=== PATIENT | female | born 1990 | race Caucasian/White ===

== ENCOUNTER 2016-09-01 19:43 | Emergency (ER) | payer OTHER ==
--- NOTE | 2016-09-03 14:26 | ER ---
ADMIT: 09/01/2016 RM/LOC: ER [facility] MR#: [id number] [address] [id number] KAEL BENITES Jenifer [facility] [address] Emergency Room Report SEX: F AGE: 25 : 1990 DATE: 09/01/2016 ADDENDUM: CHIEF COMPLAINT: Bleeding. HISTORY OF PRESENT ILLNESS: This is a 25-year-old female, who is about 8 weeks . She started having some cramping and bleeding on Wednesday, just progressively worsened, she passed a big clot this evening, as she was concerned, so came to ER. Ultrasound was done, it did show a sac, but there is no heart rate. She does have O positive blood. Her CBC is normal. Quant is pending at this time. I am going to discharge her home, have her return to the ER if she is bleeding through 2 pads in 2 consecutive hours. Otherwise, she does have an appointment in 2 days with her OB. I told her to keep that appointment for followup. CLINICAL IMPRESSION: Threatened . NERIS Rothman / Nilo Dunlap MD / aleksandr JOB #: [id number] CC: Nilo Dunlap MD, Attending Physician Elizabeth Devine MD, Family Physician
== END 2016-09-01 21:45 | disposition home or self-care (01) ==
LOC: ER 19:43
DX: O20.0 Threatened abortion (principal); O99.341 Other mental disorders complicating pregnancy, first trimester; F32.9 Major depressive disorder, single episode, unspecified; Z3A.08 8 weeks gestation of pregnancy; Z79.899 Other long term (current) drug therapy